=== PATIENT | male | born 1975 | race American Indian/Alaskan Native ===

== ENCOUNTER 2020-07-22 14:56 | Outpatient (CLI) | payer OTHER ==
--- NOTE | 2020-07-22 16:33 | XRay Report ---
Lumbar spine-5 views INDICATION: Low back pain for the past month, previous injury 2 years ago after a fall. COMPARISON: None. IMPRESSION: Mild scoliotic curvature the spine with normal AP alignment. Mild lower lumbar discogen ic DJD. No acute osseous or soft tissue abnormality. Signer Name: Ten Wilhelm MD Signed: 07/22/2020 4:29 PM Workstation Name: [id number]
== END 2020-07-22 14:57 | disposition home or self-care (01) ==
LOC: XRAY 14:56
PROVIDERS: ATTEND Orthopaedic Surgery
DX: M47.816 Spondylosis without myelopathy or radiculopathy, lumbar region (principal); M43.8X7 Other specified deforming dorsopathies, lumbosacral region; M25.552 Pain in left hip
CPT/HCPCS: 72100

== ENCOUNTER 2020-12-02 15:17 | Inpatient (IN) | payer OTHER ==
--- NOTE | 2020-12-02 16:02 | Emergency Department Report ---
Blank Doc - Documentation Documentation: 45-year-old male that presents with headaches and confusing. Stated HX of HTN and is complaint. Was sent by PCP. Exam: neuro exam unremarkable. 1- This initial assessment/diagnostic orders/clinical plan/ treatment(s) is/are subject to change based on pt's health status, clinical progression and re- assessment by fellow clinical providers in the ED. Further treatment and workup at subsequent clinical provers discretion. Patient/guardians urged not to elope from ED as their condition may be serious if not clinically assessed and managed. 2-labs 3-CT head
[2020-12-02 16:42] LABS: Basophils # (Auto) 0.1 K/mm3 (0.0-0.1); Basophils % (Auto) 0.7 % (0.0-1.8); Eosinophils # (Auto) 0.2 K/mm3 (0.0-0.4); Eosinophils % (Auto) 1.8 % (0.0-4.3); Hematocrit 48.6 % (35.5-45.6); Hemoglobin 16.3 gm/dl (11.8-15.2); Mean Corpuscular HGB Conc 34 % (32-34); Mean Corpuscular Volume 92 fl (84-94); Monocytes # (Auto) 0.8 K/mm3 (0.0-0.8); Monocytes % (Auto) 8.4 % (0.0-7.3); Platelet Count 269 K/mm3 (140-440); Red Blood Count 5.29 M/mm3 (3.65-5.03); Red Cell Distribution Width 14.4 % (13.2-15.2)
[2020-12-02 16:53] LABS: Alanine Aminotransferase 16 units/L (7-56); Albumin 4.3 g/dL (3.9-5); BUN/Creatinine Ratio 11; Blood Urea Nitrogen 11 mg/dL (9-20); Calcium 9.9 mg/dL (8.4-10.2); Hemolysis Index 3; INR 1.11 (0.87-1.13)
[2020-12-02 16:54] LABS: Partial Thromboplastin Time 35.5 Sec. (24.2-36.6)
--- NOTE | 2020-12-02 17:03 | Cat Scan Report ---
NONENHANCED CT SCAN OF THE HEAD: INDICATION / CLINICAL INFORMATION: 45 years Male; Altered Mental Status. TECHNIQUE: Routine CT head without contrast. All CT scans at this location are performed using CT dos e reduction for ALARA by means of automated exposure control. COMPARISON: CT scan of the head from 05/22/2012 FINDINGS: BRAIN / INTRACRANIAL CONTENTS: Low-attenuation lesion along the right anterior cerebral artery territ ory; mild mass effect right frontal horn; this appears to be recent infarction; no hemorrhagic change s; No chronic infarct or focal atrophy. Normal brain volume and ventricular/sulcal size for age. No sign ificant white matter abnormality. CRANIOCERVICAL JUNCTION: No significant abnormality. ORBITS: No significant abnormality of visualized orbits. SINUSES / MASTOIDS: No significant abnormality of the visualized paranasal sinuses or mastoid air carina ls. ADDITIONAL FINDINGS: None. IMPRESSION: Right CRITICAL RESULT: Time of Discovery (KILN REMOVER/CDT): 3:55 PM Time of Communication (KILN REMOVER/CDT): 3:58 PM Licensed Practitioner Receiving Report: Charge nurse Read-Back Performed: Yes. frontal lobe lesion; Subacute nonhemorrhagic infarction Signer Name: Galo Wilder MD Signed: 12/02/2020 4:59 PM Workstation Name: [id number]
[2020-12-02] MEDS ORDERED: ACETAMINOPHEN 325 MG TAB PO ONE (18:52)
--- NOTE | 2020-12-02 20:43 | Emergency Department Report ---
HPI - General Chief Complaint: High BP Time Seen by Provider: 12/02/20 16:01 - HPI HPI: This is a 45-year-old -[place] male who presents to the emergency department with complaint of 2 days of confusion. The patient says that he was having difficulty answering questions that he normally would be able to answer such as a list of his medications. The patient's , who is currently on the phone during our initial examination, also says that the patient has been "delirious" in which he is having episodes where he is not making sense and wand ering off. They called 911 last night and the patient was evaluated by EMS but did not go to a hospital for evaluation or treatment. Over this 2 days the patient also complains of a headache behind his eyes. He has had some transient blurry vision. He denies any numbness or paresthesias, facial droop, difficulty moving his extremities or walking. He has a past medical history of hypertension. He had an episode of pancreatitis back in March of last year. The patient is a tobacco smoker but denies any illicit drug use. He is an occasional or social drinker. ED Past Medical Hx - Past Medical History Hx Hypertension: Yes - Surgical History Additional Surgical History: hernia, hemorrhoidectomy - Social History Smoking Status: Never Smoker Substance Use Type: Alcohol - Medications Home Medications: Home Medications Medication Instructions Recorded Confirmed Last Taken Type Lisinopril/Hydrochlorothiazide 1 tab PO QDAY 08/26/13 08/14/15 08/13/15 History [Zestoretic 20-25 mg] traMADoL [Ultram 50 MG tab] 50 mg PO Q6H PRN #20 tablet 08/26/13 08/14/15 08/13/15 Rx Permethrin 5% [Acticin 5% CREAM] 1 applicatio TP ONCE #1 tube 08/14/15 Unknown Rx hydrOXYzine PAMOATE [Vistaril] 25 mg PO Q6HR PRN #20 capsule 08/14/15 Unknown Rx ED Review of Systems ROS: Stated complaint: HYPERTENSION Other details as noted in HPI Comment: All other systems reviewed and negative Constitutional: denies: chills, fever Eyes: vision change (Transient blurry vision). denies: eye pain ENT: denies: ear pain, throat pain Respiratory: denies: cough, shortness of breath Cardiovascular: denies: chest pain, palpitations Gastrointestinal: denies: abdominal pain, vomiting Genitourinary: denies: dysuria, discharge Musculoskeletal: denies: back pain, arthralgia Neurological: headache, confusion. denies: weakness, numbness, paresthesias Physical Exam - Physical Exam Vital Signs: Vital Signs 12/02/20 12/02/20 12/02/20 15:46 15:51 20:28 Temperature 98.6 F 97.6 F Pulse Rate 77 75 Respiratory 18 18 12 Rate Blood Pressure 150/92 154/100 Blood Pressure 152/95 [Left] O2 Sat by Pulse 98 99 Oximetry Physical Exam: GENERAL: The patient is well-developed well-nourished. HENT: Normocephalic. Atraumatic. Patient has moist mucous membranes. EYES: Extraocular motions are intact. Pupils equal reactive to light bilaterally. No nystagmus. NECK: Supple. Trachea is midline. CHEST/LUNGS: Clear to auscultation. There is no respiratory distress noted. HEART/CARDIOVASCULAR: Regular. There is no tachycardia. There is no murmur. ABDOMEN: Abdomen is soft, nontender. Patient has normal bowel sounds. There is no abdominal distention. SKIN: Skin is warm and dry. NEURO: The patient is awake, alert, and oriented. The patient is cooperative. No pronator drift. No dysmetria. No facial asymmetry. Normal speech. Cranial nerves II through XII grossly intact. MUSCULOSKELETAL: There is no tenderness or deformity. There is no limitation range of motion. ED Course Vital Signs 12/02/20 12/02/20 12/02/20 15:46 15:51 20:28 Temperature 98.6 F 97.6 F Pulse Rate 77 75 Respiratory 18 18 12 Rate Blood Pressure 150/92 154/100 Blood Pressure 152/95 [Left] O2 Sat by Pulse 98 99 Oximetry - Consultations Consultation #1: 12/03/20 00:10 Patient was seen by the telemedicine neurologist, Dr. Mosley. He agrees that the patient does not require CT angiography studies. The patient is outside of the window for TPA or thrombectomy. He recommends admission to the hospital for further stroke work-up including MRI, echocardiogram, and inpatient neurology consult. ED Medical Decision Making - Lab Data Result diagrams: 12/02/20 16:11 12/02/20 16:11 Lab Results 12/02/20 12/02/2012/02/21 Range/Units 16:11 16:11 16:11 WBC 10.0 (4.5-11.0) K/mm3 RBC 5.29 H (3.65-5.03) M/mm3 Hgb 16.3 H (11.8-15.2) gm/dl Hct 48.6 H (35.5-45.6) % MCV 92 (84-94) fl MCH 31 (28-32) pg MCHC 34 (32-34) % RDW 14.4 (13.2-15.2) % Plt Count 269 (140-440) K/mm3 Lymph % (Auto) 20.0 (13.4-35.0) % Wake % (Auto) 8.4 H (0.0-7.3) % Eos % (Auto) 1.8 (0.0-4.3) % Baso % (Auto) 0.7 (0.0-1.8) % Lymph # (Auto) 2.0 (1.2-5.4) K/mm3 Wake # (Auto) 0.8 (0.0-0.8) K/mm3 Eos # (Auto) 0.2 (0.0-0.4) K/mm3 Baso # (Auto) 0.1 (0.0-0.1) K/mm3 Seg Neutrophils % 69.1 (40.0-70.0) % Seg Neutrophils # 6.9 (1.8-7.7) K/mm3 PT 14.1 (12.2-14.9) Sec. INR 1.11 (0.87-1.13) APTT 35.5 (24.2-36.6) Sec. Sodium (137-145) mmol/L Potassium (3.6-5.0) mmol/L Chloride (98-107) mmol/L Carbon Dioxide (22-30) mmol/L Anion Gap mmol/L BUN (9-20) mg/dL Creatinine (0.8-1.3) mg/dL Estimated GFR ml/min BUN/Creatinine Ratio % Glucose (75-100) mg/dL Lactic Acid 0.80 (0.7-2.0) mmol/L Calcium (8.4-10.2) mg/dL Total Bilirubin (0.1-1.2) mg/dL AST (5-40) units/L ALT (7-56) units/L Alkaline Phosphatase (35-129) units/L Total Creatine Kinase (55-170) units/L Troponin T (0.00-0.029) ng/mL Total Protein (6.3-8.2) g/dL Albumin (3.9-5) g/dL Albumin/Globulin Ratio % Salicylates (2.8-20.0) mg/dL Acetaminophen (10.0-30.0) ug/mL Plasma/Serum Alcohol (0-0.07) % 12/02/20 12/02/20 12/02/20 Range/Units 16:11 16:11 16:11 WBC (4.5-11.0) K/mm3 RBC (3.65-5.03) M/mm3 Hgb (11.8-15.2) gm/dl Hct (35.5-45.6) % MCV (84-94) fl MCH (28-32) pg MCHC (32-34) % RDW (13.2-15.2) % Plt Count (140-440) K/mm3 Lymph % (Auto) (13.4-35.0) % Wake % (Auto) (0.0-7.3) % Eos % (Auto) (0.0-4.3) % Baso % (Auto) (0.0-1.8) % Lymph # (Auto) (1.2-5.4) K/mm3 Wake # (Auto) (0.0-0.8) K/mm3 Eos # (Auto) (0.0-0.4) K/mm3 Baso # (Auto) (0.0-0.1) K/mm3 Seg Neutrophils % (40.0-70.0) % Seg Neutrophils # (1.8-7.7) K/mm3 PT (12.2-14.9) Sec. INR (0.87-1.13) APTT (24.2-36.6) Sec. Sodium 134 L (137-145) mmol/L Potassium 4.2 (3.6-5.0) mmol/L Chloride 100.6 (98-107) mmol/L Carbon Dioxide 22 (22-30) mmol/L Anion Gap 16 mmol/L BUN 11 (9-20) mg/dL Creatinine 1.0 (0.8-1.3) mg/dL Estimated GFR > 60 ml/min BUN/Creatinine Ratio 11 % Glucose 125 H (75-100) mg/dL Lactic Acid (0.7-2.0) mmol/L Calcium 9.9 (8.4-10.2) mg/dL Total Bilirubin 0.30 (0.1-1.2) mg/dL AST 20 (5-40) units/L ALT 16 (7-56) units/L Alkaline Phosphatase 97 (35-129) units/L Total Creatine Kinase 207 H (55-170) units/L Troponin T < 0.010 (0.00-0.029) ng/mL Total Protein 8.1 (6.3-8.2) g/dL Albumin 4.3 (3.9-5) g/dL Albumin/Globulin Ratio 1.1 % Salicylates < 0.3 L (2.8-20.0) mg/dL Acetaminophen 5.0 L (10.0-30.0) ug/mL Plasma/Serum Alcohol (0-0.07) % // Range/Units 16:11 WBC (4.5-11.0) K/mm3 RBC (3.65-5.03) M/mm3 Hgb (11.8-15.2) gm/dl Hct (35.5-45.6) % MCV (84-94) fl MCH (28-32) pg MCHC (32-34) % RDW (13.2-15.2) % Plt Count (140-440) K/mm3 Lymph % (Auto) (13.4-35.0) % Wake % (Auto) (0.0-7.3) % Eos % (Auto) (0.0-4.3) % Baso % (Auto) (0.0-1.8) % Lymph # (Auto) (1.2-5.4) K/mm3 Wake # (Auto) (0.0-0.8) K/mm3 Eos # (Auto) (0.0-0.4) K/mm3 Baso # (Auto) (0.0-0.1) K/mm3 Seg Neutrophils % (40.0-70.0) % Seg Neutrophils # (1.8-7.7) K/mm3 PT (12.2-14.9) Sec. INR (0.87-1.13) APTT (24.2-36.6) Sec. Sodium (137-145) mmol/L Potassium (3.6-5.0) mmol/L Chloride (98-107) mmol/L Carbon Dioxide (22-30) mmol/L Anion Gap mmol/L BUN (9-20) mg/dL Creatinine (0.8-1.3) mg/dL Estimated GFR ml/min BUN/Creatinine Ratio % Glucose (75-100) mg/dL Lactic Acid (0.7-2.0) mmol/L Calcium (8.4-10.2) mg/dL Total Bilirubin (0.1-1.2) mg/dL AST (5-40) units/L ALT (7-56) units/L Alkaline Phosphatase (35-129) units/L Total Creatine Kinase (55-170) units/L Troponin T (0.00-0.029) ng/mL Total Protein (6.3-8.2) g/dL Albumin (3.9-5) g/dL Albumin/Globulin Ratio % Salicylates (2.8-20.0) mg/dL Acetaminophen (10.0-30.0) ug/mL Plasma/Serum Alcohol < 0.01 (0-0.07) % - Radiology Data Radiology results: report reviewed NONENHANCED CT SCAN OF THE HEAD: INDICATION / CLINICAL INFORMATION: 45 years Male; Altered Mental Status. TECHNIQUE: Routine CT head without contrast. All CT scans at this location are performed using CT dose reduction for ALARA by means of automated exposure control. COMPARISON: CT scan of the head from 05/22/2012 FINDINGS: BRAIN / INTRACRANIAL CONTENTS: Low-attenuation lesion along the right anterior cerebral artery territory; mild mass effect right frontal horn; this appears to be recent infarction; no hemorrhagic changes; No chronic infarct or focal atrophy. Normal brain volume and ventricular/sulcal size for age. No significant white matter abnormality. CRANIOCERVICAL JUNCTION: No significant abnormality. ORBITS: No significant abnormality of visualized orbits. SINUSES / MASTOIDS: No significant abnormality of the visualized paranasal sinuses or mastoid air cells. ADDITIONAL FINDINGS: None. IMPRESSION: Right frontal lobe lesion; Subacute nonhemorrhagic infarction - Medical Decision Making This patient presents to the emergency department with a complaint of a headache, "confusion", intermittent blurry vision. He was found to have a right frontal subacute infarct on CT showing recent CVA. He was seen by telemedicine neurology who got an NIH stroke scale of 2. Patient was given aspirin. Labs have been mostly unremarkable including CBC, metabolic panel, coags, troponin, acetaminophen/salicylates. Vital signs have been reassuring throughout his ED course thus far. The patient will be admitted to the hospital for further evaluation and treatment was accepted for admission by the hospitalist service. Critical Care Time: No Critical care attestation.: If time is entered above; I have spent that time in minutes in the direct care of this critically ill patient, excluding procedure time. ED Disposition Clinical Impression: CVA (cerebral vascular accident) Qualifiers: CVA mechanism: unspecified Qualified Code(s): I63.9 - Cerebral infarction, unspecified Hypertension Qualifiers: Hypertension type: essential hypertension Qualified Code(s): I10 - Essential (primary) hypertension Disposition: 09 OP ADMIT IP TO THIS HOSP Is pt being admited?: No Condition: Stable Time of Disposition: 21:23
--- NOTE | 2020-12-02 21:04 | Consultation ---
History of Present Illness History of present illness: [facility] Tele[facility]urology Consult Services Stat Consult Date of Service: 12/02/2020 20:47:35 Impression: I63.9 - Cerebrovascular accident (CVA), unspecified mechanism (HCC) Comments/Sign-Out: 45 y/o man presents with h/o HTN who presents to to the ED with confusion and blurry vision since Wednesday (11/30) afternoon. Stroke seen on CT. CT HEAD: Reviewed Metrics: [facility] Notification Time: 12/02/2020 20:47:35 Stamp Time: 12/02/2020 20:47:35 Callback Response Time: 12/02/2020 20:48:03 Our recommendations are outlined below. Recommendations: ASA if no contraindication Covid testing Imaging Studies: MRI Head Without Contrast MRA Head Without Contrast Echocardiogram - Transthoracic Echocardiogram Therapies: Physical Therapy, Occupational Therapy, Speech Therapy Assessment When Applicable Disposition: Neurology Follow Up Recommended Sign Out: Discussed with Emergency Department Provider Chief Complaint: confusion and blurry vision History of Present Illness: Patient is a 45 year old Male. 45 y/o man presents with h/o HTN who presents to to the ED with confusion and blurry vision since Wednesday (11/30) afternoon. Patient also notes some slight gait difficulty since Wednesday. STAT teleneurology requested after CT brain showed a subacute right NIDHI ischemic stroke. Case discussed with ED attending at bedside. Examination: BP(152/95), Pulse(75), Blood Glucose(125) 1A: Level of Consciousness - Alert; keenly responsive + 0 1B: Ask Month and Age - Both Questions Right + 0 1C: Blink Eyes & Squeeze Hands - Performs Both Tasks + 0 2: Test Horizontal Extraocular Movements - Normal + 0 3: Test Visual Jeong - No Visual Loss + 0 4: Test Facial Palsy (Use Grimace if Obtunded) - Normal symmetry + 0 5A: Test Left Arm Motor Drift - No Drift for 10 Seconds + 0 5B: Test Right Arm Motor Drift - No Drift for 10 Seconds + 0 6A: Test Left Leg Motor Drift - Drift, but doesn't hit bed + 1 6B: Test Right Leg Motor Drift - No Drift for 5 Seconds + 0 7: Test Limb Ataxia (FNF/Heel-Florez) - No Ataxia + 0 8: Test Sensation - Mild-Moderate Loss: Less Sharp/More Dull + 1 9: Test Language/Aphasia - Normal; No aphasia + 0 10: Test Dysarthria - Normal + 0 11: Test Extinction/Inattention - No abnormality + 0 NIHSS Score: 2 Patient/Family was informed the Neurology Consult would occur via TeleHealth consult by way of interactive audio and video telecommunications and consented to receiving care in this manner. Due to the immediate potential for life-threatening deterioration due to underlying acute neurologic illness, I spent 15 minutes providing critical care. This time includes time for face to face visit via telemedicine, review of medical records, imaging studies and discussion of findings with providers, the patient and/or family. Dr Fercho Mosley [facility] Case [id number] Medications and Allergies Allergies Allergy/AdvReac Type Severity Reaction Status Date / Time No Known Allergies Allergy Verified 12/02/20 15:44 Home Medications Medication Instructions Recorded Confirmed Last Taken Type Lisinopril/Hydrochlorothiazide 1 tab PO QDAY 08/26/13 08/14/15 08/13/15 History [Zestoretic 20-25 mg] traMADoL [Ultram 50 MG tab] 50 mg PO Q6H PRN #20 tablet 08/26/13 08/14/15 08/13/15 Rx Permethrin 5% [Acticin 5% CREAM] 1 applicatio TP ONCE #1 tube 08/14/15 Unknown Rx hydrOXYzine PAMOATE [Vistaril] 25 mg PO Q6HR PRN #20 capsule 08/14/15 Unknown Rx Physical Examination - Vital Signs Vital Signs: Vital Signs Temp Pulse Resp BP Pulse Ox 98.6 F 77 18 150/92 98 12/02/20 15:46 12/02/20 15:46 12/02/20 15:46 12/02/20 15:46 12/02/20 15:46 Results - Laboratory Findings CBC and BMP: 12/02/20 16:11 12/02/20 16:11 Abnormal Lab Findings: Abnormal Labs 12/02/20 12/02/20 12/02/20 16:11 16:11 16:11 RBC 5.29 H Hgb 16.3 H Hct 48.6 H [place] % (Auto) 8.4 H Sodium 134 L Glucose 125 H Total Creatine Kinase 207 H Salicylates < 0.3 L Acetaminophen 12/02/20 16:11 RBC Hgb Hct [place] % (Auto) Sodium Glucose Total Creatine Kinase Salicylates Acetaminophen 5.0 L
[2020-12-02] MEDS ORDERED: ASPIRIN 81 MG TAB CHEW PO ONE (21:13)
[2020-12-02] MEDS ORDERED: ACETAMINOPHEN 325 MG TAB PO PRN (21:36)
[2020-12-02] MEDS ORDERED: METOCLOPRAMIDE 10 MG/2 ML INJ IV PRN (21:36)
[2020-12-02] MEDS ORDERED: ONDANSETRON 4 MG/2 ML INJ IV PRN (21:36)
[2020-12-02] MEDS ORDERED: ALUM-MAG HYDROXIDE-SIMETHICONE 200-200-20MG/5ML ORAL LIQD 30 ML PO PRN (21:36)
[2020-12-02] MEDS ORDERED: MAGNESIUM HYDROXIDE (MOM) ORAL LIQD UDC PO PRN (21:36)
--- NOTE | 2020-12-02 21:46 | History and Physical Report ---
History of Present Illness Date of examination: 12/02/20 Date of admission: 12/02/20 Chief complaint: Confusion Delirium CVA History of present illness: This is a 45-year-old -[place] male who presents to the emergency department with complaint of 2 days of confusion. The patient says that he was having difficulty answering questions that he normally would be able to answer such as a list of his medications. The patient's , who is currently on the phone during our initial examination, also says that the patient has been "delirious" in which he is having episodes where he is not making sense and wandering off. They called 911 last night and the patient was evaluated by EMS but did not go to a hospital for evaluation or treatment. Over this 2 days the patient also complains of a headache behind his eyes. He has had some transient blurry vision. He denies any numbness or paresthesias, facial droop, difficulty moving his extremities or walking. He has a past medical history of hypertension. He had an episode of pancreatitis back in March of last year. The patient is a tobacco smoker but denies any illicit drug use. He is an occasion al or social drinker. ED work up shows-WBC 10.0, hemoglobin 16.3, platelets 269, sodium 134, potassium 4.2, creatinine 1.0, serum glucose 207. CT of the head was done it showed a subacute nonhemorrhagic infarction Teleneuro was consulted Patient seen in the ED at bedside. Patient appears more alert and oriented. He reported a history of high blood pressure, tobacco use, but denies alcohol and i llicit drug use. He reported a history of mother with high blood pressure and multiple myeloma. I reviewed the lab and vital signs. I reviewed neuro consult recommendation. We will follow up with plan of care. Physical therapy, occupational therapy, and speech pathologist consulted MRI head without contrast and MRA head without contrast ordered Echocardiogram ordered. Past History Past Medical History: hypertension Past Surgical History: hernia repair Social history: smoking Family history: CAD, diabetes, hypertension Medications and Allergies Allergies Allergy/AdvReac Type Severity Reaction Status Date / Time No Known Allergies Allergy Verified 12/02/20 15:44 Home Medications Medication Instructions Recorded Confirmed Last Taken Type Lisinopril/Hydrochlorothiazide 1 tab PO QDAY 08/26/13 08/14/15 08/13/15 History [Zestoretic 20-25 mg] traMADoL [Ultram 50 MG tab] 50 mg PO Q6H PRN #20 tablet 08/26/13 08/14/15 08/13/15 Rx Permethrin 5% [Acticin 5% CREAM] 1 applicatio TP ONCE #1 tube 08/14/15 Unknown Rx hydrOXYzine PAMOATE [Vistaril] 25 mg PO Q6HR PRN #20 capsule 08/14/15 Unknown Rx Active Meds: Active Medications Acetaminophen (Acetaminophen 325 Mg Tab) 650 mg PO Q4H PRN PRN Reason: Pain MILD(1-3)/Fever >100.5/MAGAÑA Al Hydrox/Mg Hydrox/Simethicone (Alum-Mag Hydroxide-Simethicone [id number]/5ml Oral Liqd 30 Ml) 30 ml PO Q4H PRN PRN Reason: Indigestion Atorvastatin Calcium (Atorvastatin 40 Mg Tab) 40 mg PO QHS JOHN Labetalol HCl (Labetalol 20 Mg/4 Ml Inj) 10 mg IV Q5MIN PRN PRN Reason: to maintain SBP < 180 Magnesium Hydroxide (Magnesium Hydroxide (Mom) Oral Liqd Udc) 30 ml PO Q4H PRN PRN Reason: Constipation Metoclopramide HCl (Metoclopramide 10 Mg/2 Ml Inj) 10 mg IV Q6H PRN PRN Reason: Nausea And Vomiting Ondansetron HCl (Ondansetron 4 Mg/2 Ml Inj) 4 mg IV Q8H PRN PRN Reason: Nausea And Vomiting Sodium Chloride (Sodium Chloride 0.9% 10 Ml Flush Syringe) 10 ml INJ PRN PRN PRN Reason: LINE FLUSH Sodium Chloride (Sodium Chloride 0.9% 10 Ml Flush Syringe) 10 ml IV BID JOHN Sodium Chloride (Sodium Chloride 0.9% 10 Ml Flush Syringe) 10 ml IV PRN PRN PRN Reason: LINE FLUSH Review of Systems Constitutional: no weight loss Ears, nose, mouth and throat: no epistaxis Cardiovascular: high blood pressure, no chest pain Respiratory: no congestion, no wheezing Gastrointestinal: no abdominal pain, no nausea Genitourinary Male: no dysuria Rectal: no itching Integumentary: no rash, no pruritis Neurological: confusion, memory loss Psychiatric: no anxiety Hematologic/Lymphatic: no easy bruising, no easy bleeding Exam - Constitutional Vitals: Temp Pulse Resp BP Pulse Ox 97.6 F 89 15 147/89 99 12/02/20 15:51 12/02/20 21:15 12/02/20 21:15 12/02/20 21:15 12/02/20 21:15 General appearance: Present: no acute distress - EENT Eyes: Absent: conjunctival injection ENT: hearing intact, clear oral mucosa - Neck Neck: Present: supple, normal ROM - Respiratory Respiratory effort: normal Respiratory: bilateral: CTA - Cardiovascular Heart Sounds: Present: S1 & S2. Absent: rub, click - Extremities Extremities: pulses symmetrical, No edema - Abdominal General gastrointestinal: Present: soft Male genitourinary: Present: normal - Integumentary Integumentary: Present: clear, warm, dry - Musculoskeletal Musculoskeletal: strength equal bilaterally, other (left leg weakness mild) - Psychiatric Psychiatric: appropriate mood/affect, cooperative HEART Score - HEART Score Troponin: Troponin T < 0.010 ng/mL (0.00-0.029) 12/02/20 16:11 Results - Labs CBC & Chem 7: 12/03/20 04:45 12/03/20 04:45 Labs: Abnormal lab results 12/02/20 12/02/20 12/02/20 Range/Units 16:11 16:11 16:11 RBC 5.29 H (3.65-5.03) M/mm3 Hgb 16.3 H (11.8-15.2) gm/dl Hct 48.6 H (35.5-45.6) % [place] % (Auto) 8.4 H (0.0-7.3) % Sodium 134 L (137-145) mmol/L Glucose 125 H (75-100) mg/dL Total Creatine Kinase 207 H (55-170) units/L Salicylates < 0.3 L (2.8-20.0) mg/dL Acetaminophen (10.0-30.0) ug/mL 12/02/20 Range/Units 16:11 RBC (3.65-5.03) M/mm3 Hgb (11.8-15.2) gm/dl Hct (35.5-45.6) % [place] % (Auto) (0.0-7.3) % Sodium (137-145) mmol/L Glucose (75-100) mg/dL Total Creatine Kinase (55-170) units/L Salicylates (2.8-20.0) mg/dL Acetaminophen 5.0 L (10.0-30.0) ug/mL Assessment and Plan - Patient Problems (1) CVA (cerebral vascular accident) Current Visit: Yes Status: Acute Qualifiers: CVA mechanism: unspecified Qualified Code(s): I63.9 - Cerebral infarction, unspecified Plan to address problem: CT of the head showed subacute infarction PT OT and speech consults Telemetry neuro consulted Follow-up with MRI and MRA head and brain Daily aspirin (2) Hypertension Current Visit: Yes Status: Acute Qualifiers: Hypertension type: essential hypertension Qualified Code(s): I10 - Essent ial (primary) hypertension Plan to address problem: Monitor vital signs Resume home medication Adjust blood pressure if needed. As needed hydralazine. (3) Tobacco abuse Current Visit: Yes Status: Acute Plan to address problem: Patient reported tobacco use 1 pack daily Discussed tobacco use cessation Cardiovascular and neoplasm syndrome of tobacco use explained to patient (4) DVT prophylaxis Current Visit: Yes Status: Acute Plan to address problem: Subcutaneous Lovenox
[2020-12-02] MEDS ORDERED: traMADol 50 MG TAB PO PRN (22:03)
[2020-12-03 05:31] LABS: Basophils % (Auto) 0.6 % (0.0-1.8); Eosinophils # (Auto) 0.2 K/mm3 (0.0-0.4); Hematocrit 46.2 % (35.5-45.6); Hemoglobin 15.4 gm/dl (11.8-15.2); Lymphocytes # (Auto) 2.4 K/mm3 (1.2-5.4); Lymphocytes % (Auto) 33.6 % (13.4-35.0); Mean Corpuscular HGB Conc 33 % (32-34); Mean Corpuscular Volume 92 fl (84-94); Monocytes # (Auto) 0.8 K/mm3 (0.0-0.8); Monocytes % (Auto) 10.9 % (0.0-7.3); Platelet Count 250 K/mm3 (140-440); Red Blood Count 5.04 M/mm3 (3.65-5.03); Red Cell Distribution Width 14.3 % (13.2-15.2)
[2020-12-03 05:50] LABS: Alanine Aminotransferase 15 units/L (7-56); BUN/Creatinine Ratio 14; Blood Urea Nitrogen 14 mg/dL (9-20); Calcium 9.2 mg/dL (8.4-10.2); HDL Cholesterol 39 mg/dL (40-59); Hemolysis Index 6; LDL Cholesterol,Direct 105 mg/dL (50-130)
[2020-12-03 05:58] LABS: Bilirubin,Direct < 0.2 mg/dL (0-0.2)
[2020-12-03] MEDS ORDERED: hydrALAZINE 20 MG/1 ML INJ IV PRN (07:25)
[2020-12-03] MEDS ORDERED: hydrOXYzine PAMOATE 25 MG CAP PO PRN (07:40)
[2020-12-03] MEDS ORDERED: LISINOPRIL 20 MG TAB PO SCH (10:00)
[2020-12-03] MEDS: ASPIRIN EC 81 MG TAB PO SCH (11:47)
[2020-12-03] MEDS: hydroCHLOROthiazide 25 MG TAB PO SCH (11:47)
[2020-12-03] MEDS: cloNIDine 0.2 MG TAB PO SCH ×2 (11:47→21:43)
[2020-12-03] MEDS: ENOXAPARIN 40 MG/0.4 ML INJ SUB-Q SCH (11:48)
[2020-12-03 12:19] LABS: Bilirubin,Urine NEG (Negative); Blood,Urine NEG (Negative); Color,Urine Yellow (Yellow); Mucus,Urine 3+ /HPF; Protein,Urine <15 mg/dL mg/dL (Negative); Urobilinogen,Urine < 2.0 mg/dL (<2.0)
[2020-12-03 12:24] LABS: Benzodiazepines Screen,Urine Negative; Cannabinoid Screen,Urine Negative; Methadone Screen,Urine Negative; Opiate Screen,Urine Negative
[2020-12-03 12:58] LABS: Amphetamine Screen,Urine PRESUMPTIVE POSITIVE; Cocaine Screen,Urine PRESUMPTIVE POSITIVE
--- NOTE | 2020-12-03 15:50 | Magnetic Resonance Report ---
NONENHANCED MR SCAN OF THE BRAIN: INDICATION / CLINICAL INFORMATION: r/o cva. TECHNIQUE: Multiplanar, multisequence MR images of the brain obtained. COMPARISON: CT scan of the head from 12/02/2020 FINDINGS: BRAIN / INTRACRANIAL CONTENTS: Subacute infarction in the right anterior cerebral artery territory, m ore than 12 hours old increased T2 signal intensity) less than 3 days old (low ADC); no morrhagic jennifer nges Scattered white matter lesions ([place] 0) due to chronic small vessel disease Brainstem and cerebral hemispheres are normal Medial temporal lobes and insular cortex are normal CRANIOCERVICAL JUNCTION: Peg Shaped erebellar tonsils extending below the foramen magnum; transverse dimension of the cervicomedullary junction narrowed at the level of foramen magnum; retrotonsillar CS F containing space preserved; type I Chiari malformation VASCULAR FLOW-VOIDS: No significant abnormality. ORBITS: No significant abnormality of visualized orbits. SINUSES / MASTOIDS: No significant abnormality of visualized sinuses and mastoid air cells. ADDITIONAL FINDINGS: None. IMPRESSION: 1. Nonhemorrhagic subacute branch occlusion infarction in the right anterior cerebral artery territo ry 2. Chiari type I malformation Signer Name: Galo Wilder MD Signed: 12/03/2020 3:45 PM Workstation Name: [id number] [facility] [employer]
--- NOTE | 2020-12-03 16:00 | Magnetic Resonance Report ---
MRA HEAD WITHOUT CONTRAST HISTORY: Stroke COMPARISON: None. TECHNIQUE: Routine MRA of the head is performed. 3-D/MIP reformats postprocessed. CONTRAST: None. FINDINGS: Intracranial vertebral arteries: No significant abnormality. Basilar artery: No significant abnormality. Posterior cerebral arteries: No significant abnormality. Right posterior communicating artery contrib utes to right posterior cerebral artery Intracranial internal carotid arteries: No significant abnormality. Anterior cerebral arteries: A1, A2 & A3 segments normal bilaterally; right callosomarginal artery oc cluded Middle cerebral arteries: No significant abnormality. Variants and anomalies:None Additional findings: None. IMPRESSION: [place] of [place] and both middle cerebral artery trifurcations normal; A1, A2 & A3 segments normal bi laterally Right callosomarginal artery occluded Signer Name: Galo Wilder MD Signed: 12/03/2020 3:55 PM Workstation Name: [id number]
--- NOTE | 2020-12-03 20:25 | Progress Note ---
Subjective Date of service: 12/03/20 Principal diagnosis: CVA Interval history: The Video Component was not able to established . Per the Nursing Staff the patient reports clinical improvement , there is no focal weakness . Reviewed MRI Brain and MRA Brain - Seems a focal infarct in the Anterior Circulations - MRA ? occlusion Given the age of the patient , patient needs a embolic workup including / DAYDAY / Holter out patient to rule out Atrial Fibrillation . Currently continue with Statins and Antiplatelet Agents . Call Back with Questions Dr. Cole Objective - Vital Sign Vital Signs - 12hr 12/03/20 12/03/20 12/03/20 08:23 11:38 16:33 Temperature 97.5 F L 98.1 F Pulse Rate 62 88 85 Respiratory 18 18 Rate Blood Pressure 180/102 165/93 O2 Sat by Pulse 91 96 Oximetry 12/03/20 16:52 Temperature 98.0 F Pulse Rate 69 Respiratory 18 Rate Blood Pressure 104/77 O2 Sat by Pulse 95 Oximetry - Laboratory Findings CBC and BMP: 12/03/20 04:45 12/03/20 04:45 Abnormal Lab Findings: Abnormal Labs 12/02/20 12/02/20 12/02/20 16:11 16:11 16:11 RBC 5.29 H Hgb 16.3 H Hct 48.6 H [place] % (Auto) 8.4 H Sodium 134 L Glucose 125 H Total Creatine Kinase 207 H HDL Cholesterol Salicylates < 0.3 L Acetaminophen 12/02/20 12/03/20 12/03/20 16:11 04:45 04:45 RBC 5.04 H Hgb 15.4 H Hct 46.2 H [place] % (Auto) 10.9 H Sodium 136 L Glucose Total Creatine Kinase HDL Cholesterol 39 L Salicylates Acetaminophen 5.0 L
[2020-12-03] MEDS: traZODone 50 MG TAB PO PRN (21:48)
--- NOTE | 2020-12-04 08:47 | Progress Note ---
Assessment and Plan Assessment and plan: This is a 45-year-old -[place] male who presents to the emergency department with complaint of 2 days of confusion. The patient says that he was having difficulty answering questions that he normally would be able to answer such as a list of his medications. The patient's urine acute infection or hematuria who is currently on the phone during our initial examination, also says that the patient has been "delirious" in which he is having episodes where he is not making sense and wandering off. They called 911 last night and the patient was evaluated by EMS but did not go to a hospital for evaluation or treatment. Over this 2 days the patient also complains of a headache behind his eyes. He has had some transient blurry vision. He denies any numbness or paresthesias, facial droop, difficulty moving his extremities or walking. He has a past medical history of hypertension. He had an episode of pancreatitis back in March of last year. The patient is a tobacco smoker but denies any illicit drug use. He is an occasional or social drinker. ED work up shows-WBC 10.0, hemoglobin 16.3, platelets 269, sodium 134, potassium 4.2, creatinine 1.0, serum glucose 207. CT of the head was done it showed a subacute nonhemorrhagic infarction Teleneuro was consulted Patient seen in the ED at bedside. Patient appears more alert and oriented. He reported a history of high blood pressure, tobacco use, but denies alcohol and illicit drug use. He reported a history of mother with high blood pressure and multiple myeloma. I reviewed the lab and vital signs. I reviewed neuro consult recommendation. We will follow up with plan of care. Physical therapy, occupational therapy, and speech pathologist consulted MRI head without contrast and MRA head without contrast ordered Echocardiogram ordered. Acute CVA likely on the lower arterial circulation Substance use disorder positive for amphetamines and cocaine Acute encephalopathy metabolic likely secondary to substance abuse and CVA Hypertension with urgency Tobacco use disorder Plan Continue supportive care aspirin and statin Carotid ultrasound Await neurology input Echocardiogram has been ordered pending. PT OT and speech therapy Extensive counseling provided to the patient for substance abuse use he verbalized that he used cocaine 2 months ago at the same time was also hospitalized at another hospital and at that time was started on clonidine due to persistent hypertensive disorder. History Interval history: Patient seen and examined no acute distress at this time resting comfortably. Hospitalist Physical - Physical exam Narrative exam: VITAL SIGNS: Reviewed. GENERAL: The patient appears normally developed, Vital signs as documented. HEAD: No signs of head trauma. EYES: Pupils are equal. Extraocular motions intact. EARS: Hearing grossly intact. MOUTH: Oropharynx is normal. NECK: No adenopathy, no JVD. CHEST: Chest with clear breath sounds bilaterally. No wheezes, rales, or rho nchi. CARDIAC: Regular rate and rhythm. S1 and S2, without murmurs, gallops, or rubs. VASCULAR: No Edema. Peripheral pulses normal and equal in all extremities. ABDOMEN: Soft, non tender and non distended. No rebound or guarding, and no masses palpated. Bowel Sounds normal. MUSCULOSKELETAL: Good range of motion of all major joints. Extremities without clubbing, cyanosis or edema. NEUROLOGIC EXAM: Alert and oriented x 3 No focal sensory or strength deficits. Speech normal. Follows commands. PSYCHIATRIC: Mood normal. SKIN: detail exam as documented in skin assessment - Constitutional Vitals: Temp Pulse Resp BP Pulse Ox 98.2 F 75 18 109/69 98 12/04/20 07:25 12/04/20 07:25 12/04/20 07:25 12/04/20 07:25 12/04/20 07:25 General appearance: Present: no acute distress HEART Score - HEART Score Troponin: Troponin T < 0.010 ng/mL (0.00-0.029) 12/02/20 16:11 Results - Labs CBC & Chem 7: 12/03/20 04:45 12/03/20 04:45 Labs: Laboratory Last Values WBC 7.2 K/mm3 (4.5-11.0) 12/03/20 04:45 RBC 5.04 M/mm3 (3.65-5.03) H 12/03/20 04:45 Hgb 15.4 gm/dl (11.8-15.2) H 12/03/20 04:45 Hct 46.2 % (35.5-45.6) H 12/03/20 04:45 MCV 92 fl (84-94) 12/03/20 04:45 MCH 31 pg (28-32) 12/03/20 04:45 MCHC 33 % (32-34) 12/03/20 04:45 RDW 14.3 % (13.2-15.2) 12/03/20 04:45 Plt Count 250 K/mm3 (140-440) 12/03/20 04:45 Lymph % (Auto) 33.6 % (13.4-35.0) 12/03/20 04:45 [place] % (Auto) 10.9 % (0.0-7.3) H 12/03/20 04:45 Eos % (Auto) 3.0 % (0.0-4.3) 12/03/20 04:45 Baso % (Auto) 0.6 % (0.0-1.8) 12/03/20 04:45 Lymph # (Auto) 2.4 K/mm3 (1.2-5.4) 12/03/20 04:45 [place] # (Auto) 0.8 K/mm3 (0.0-0.8) 12/03/20 04:45 Eos # (Auto) 0.2 K/mm3 (0.0-0.4) 12/03/20 04:45 Baso # (Auto) 0.0 K/mm3 (0.0-0.1) 12/03/20 04:45 Seg Neutrophils % 51.9 % (40.0-70.0) 12/03/20 04:45 Seg Neutrophils # 3.7 K/mm3 (1.8-7.7) 12/03/20 04:45 PT 14.1 Sec. (12.2-14.9) 12/02/20 16:11 INR 1.11 (0.87-1.13) 12/02/20 16:11 APTT 35.5 Sec. (24.2-36.6) 12/02/20 16:11 Sodium 136 mmol/L (137-145) L 12/03/20 04:45 Potassium 3.8 mmol/L (3.6-5.0) 12/03/20 04:45 Chloride 101.8 mmol/L (98-107) 12/03/20 04:45 Carbon Dioxide 24 mmol/L (22-30) 12/03/20 04:45 Anion Gap 14 mmol/L 12/03/20 04:45 BUN 14 mg/dL (9-20) 12/03/20 04:45 Creatinine 1.0 mg/dL (0.8-1.3) 12/03/20 04:45 Estimated GFR > 60 ml/min 12/03/20 04:45 BUN/Creatinine Ratio 14 % 12/03/20 04:45 Glucose 95 mg/dL (75-100) 12/03/20 04:45 POC Glucose 96 mg/dL (70-105) 12/04/20 07:24 Hemoglobin A1c 6.0 % (4-6) 12/03/20 04:45 Lactic Acid 0.80 mmol/L (0.7-2.0) 12/02/20 16:11 Calcium 9.2 mg/dL (8.4-10.2) 12/03/20 04:45 Total Bilirubin 0.30 mg/dL (0.1-1.2) 12/03/20 04:45 Direct Bilirubin < 0.2 mg/dL (0-0.2) 12/03/20 04:45 Indirect Bilirubin 0.1 mg/dL 12/03/20 04:45 AST 19 units/L (5-40) 12/03/20 04:45 ALT 15 units/L (7-56) 12/03/20 04:45 Alkaline Phosphatase 82 units/L (35-129) 12/03/20 04:45 Total Creatine Kinase 207 units/L (55-170) H 12/02/20 16:11 Troponin T < 0.010 ng/mL (0.00-0.029) 12/02/20 16:11 Total Protein 7.7 g/dL (6.3-8.2) 12/03/20 04:45 Albumin 4.0 g/dL (3.9-5) 12/03/20 04:45 Albumin/Globulin Ratio 1.1 % 12/03/20 04:45 Triglycerides 90 mg/dL (2-149) 12/03/20 04:45 Cholesterol 156 mg/dL (50-199) 12/03/20 04:45 LDL Cholesterol Direct 105 mg/dL (50-130) 12/03/20 04:45 HDL Cholesterol 39 mg/dL (40-59) L 12/03/20 04:45 Cholesterol/HDL Ratio 4.00 % 12/03/20 04:45 Urine Color Yellow (Yellow) 12/03/20 12:04 Urine Turbidity Clear (Clear) 12/03/20 12:04 Urine pH 5.0 (5.0-7.0) 12/03/20 12:04 Ur Specific [place] 1.015 (1.003-1.030) 12/03/20 12:04 Urine Protein <15 mg/dl mg/dL (Negative) 12/03/20 12:04 Urine Glucose (UA) Neg mg/dL (Negative) 12/03/20 12:04 Urine Ketones Neg mg/dL (Negative) 12/03/20 12:04 Urine Blood Neg (Negative) 12/03/20 12:04 Urine Nitrite Neg (Negative) 12/03/20 12:04 Urine Bilirubin Neg (Negative) 12/03/20 12:04 Urine Urobilinogen < 2.0 mg/dL (<2.0) 12/03/20 12:04 Ur Leukocyte Esterase Neg (Negative) 12/03/20 12:04 Urine WBC (Auto) 2.0 /HPF (0.0-6.0) 12/03/20 12:04 Urine RBC (Auto) 1.0 /HPF (0.0-6.0) 12/03/20 12:04 Urine Mucus 3+ /HPF 12/03/20 12:04 Salicylates < 0.3 mg/dL (2.8-20.0) L 12/02/20 16:11 Urine Opiates Screen Negative 12/03/20 12:04 Urine Methadone Screen Negative 12/03/20 12:04 Acetaminophen 5.0 ug/mL (10.0-30.0) L 12/02/20 16:11 Ur Barbiturates Screen Negative 12/03/20 12:04 Ur Phencyclidine Scrn Negative 12/03/20 12:04 Ur Amphetamines Screen Presumptive positive 12/03/20 12:04 U Benzodiazepines Scrn Negative 12/03/20 12:04 Urine Cocaine Screen Presumptive positive 12/03/20 12:04 U Marijuana (THC) Screen Negative 12/03/20 12:04 Drugs of Abuse Note Disclamer 12/03/20 12:04 Plasma/Serum Alcohol < 0.01 % (0-0.07) 12/02/20 16:11 Asher/IV: Voiding Method Urinal Active Medications - Current Medications Current Medications: Generic Name Dose Route Start Last Admin Trade Name Freq PRN Reason Stop Dose Admin Acetaminophen 650 mg 12/02/20 21:36 Acetaminophen 325 Mg Tab PO Q4H PRN Pain MILD(1-3)/Fever >100.5/MAGAÑA Al Hydrox/Mg Hydrox/Simethicone 30 ml 12/02/20 21:36 Alum-Mag Hydroxide-Simethicone [phone]/5ml Oral Liqd 30 Ml PO Q4H PRN Indigestion Aspirin 81 mg 12/03/20 10:00 12/03/20 11:47 Aspirin Ec 81 Mg Tab PO 81 mg DAILY JOHN Administration Atorvastatin Calcium 40 mg 12/02/20 22:00 12/03/20 21:48 Atorvastatin 40 Mg Tab PO Not Given QHS [facility] Clonidine HCl 0.2 mg 12/03/20 10:00 12/03/20 21:43 Clonidine 0.2 Mg Tab PO 0.2 mg Q12HR [facility] Administration Enoxaparin Sodium 40 mg 12/03/20 10:00 12/03/20 11:48 Enoxaparin 40 Mg/0.4 Ml Inj SUB-Q 40 mg DAILY [facility] Administration Protocol Hydralazine HCl 5 mg 12/03/20 07:25 Hydralazine 20 Mg/1 Ml Inj IV Q4HR PRN SBP >/=160; DBP >/=100 Hydrochlorothiazide 25 mg 12/03/20 10:00 12/03/20 11:47 Hydrochlorothiazide 25 Mg Tab PO 25 mg DAILY [facility] Administration Hydroxyzine Pamoate 25 mg 12/03/20 07:40 Hydroxyzine Pamoate 25 Mg Cap PO Q6HR PRN Itching Labetalol HCl 10 mg 12/02/20 21:36 Labetalol 20 Mg/4 Ml Inj IV Q5MIN PRN to maintain SBP < 180 Lisinopril 20 mg 12/03/20 10:00 12/03/20 11:48 Lisinopril 20 Mg Tab PO 20 mg DAILY [facility] Administration Magnesium Hydroxide 30 ml 12/02/20 21:36 Magnesium Hydroxide (Mom) Oral Liqd Udc PO Q4H PRN Constipation Metoclopramide HCl 10 mg 12/02/20 21:36 Metoclopramide 10 Mg/2 Ml Inj IV Q6H PRN Nausea And Vomiting Ondansetron HCl 4 mg 12/02/20 21:36 Ondansetron 4 Mg/2 Ml Inj IV Q8H PRN Nausea And Vomiting Sodium Chloride 10 ml 12/02/20 21:36 Sodium Chloride 0.9% 10 Ml Flush Syringe IV PRN PRN LINE FLUSH Sodium Chloride 10 ml 12/02/20 22:00 12/03/20 21:44 Sodium Chloride 0.9% 10 Ml Flush Syringe IV 10 ml BID JOHN Administration Tramadol HCl 50 mg 12/02/20 22:03 Tramadol 50 Mg Tab PO ONCE PRN Moder Pain unrelieved by [place] Trazodone HCl 50 mg 12/02/20 22:03 12/03/20 21:48 Trazodone 50 Mg Tab PO 50 mg QHS PRN Administration Insomnia
--- NOTE | 2020-12-04 10:21 | Consultation ---
History of Present Illness Consult date: 12/04/20 Consult reason: other (CVA, r/o cardiac embolic source) History of present illness: Patient is a 45-year old M who was brought in with alteration of mental status, found with acute CVA. Patient has no residual deficits. A cardiac consultation was requested for rule out cardioembolic source. Patient has a prior history of hypertension, and polysubstance abuse. There is no prior cardiac history. On presentation, his ECG was sinus rhythm, RBBB with no ischemic changes. No arrhythmias seen on telemetry thus far. Further evaluation with an echo cardiogram reports normal left ventricular systolic function, ejection fraction 55-60%. Bubble study is negative. Past History Past Medical History: hypertension Past Surgical History: hernia repair Social history: smoking, other (substance abuse) Family history: CAD, diabetes, hypertension Medications and Allergies Allergies Allergy/AdvReac Type Severity Reaction Status Date / Time No Known Allergies Allergy Verified 12/02/20 15:44 Home Medications Medication Instructions Recorded Confirmed Last Taken Type Lisinopril/Hydrochlorothiazide 1 tab PO QDAY 08/26/13 12/03/20 08/13/15 History [Zestoretic 20-25 mg] traMADoL [Ultram 50 MG tab] 50 mg PO Q6H PRN #20 tablet 08/26/13 12/03/20 08/13/15 Rx Permethrin 5% [Acticin 5% CREAM] 1 applicatio TP ONCE #1 tube 08/14/15 12/03/20 Unknown Rx hydrOXYzine PAMOATE [Vistaril] 25 mg PO Q6HR PRN #20 capsule 08/14/15 12/03/20 Unknown Rx Active Meds: Active Medications Acetaminophen (Acetaminophen 325 Mg Tab) 650 mg PO Q4H PRN PRN Reason: Pain MILD(1-3)/Fever >100.5/MAGAÑA Al Hydrox/Mg Hydrox/Simethicone (Alum-Mag Hydroxide-Simethicone [phone]/5ml Oral Liqd 30 Ml) 30 ml PO Q4H PRN PRN Reason: Indigestion Aspirin (Aspirin Ec 81 Mg Tab) 81 mg PO DAILY [facility] Last Admin: 12/03/20 11:47 Dose: 81 mg Documented by: Atorvastatin Calcium (Atorvastatin 40 Mg Tab) 40 mg PO QHS [facility] Last Admin: 12/03/20 21:48 Dose: Not Given Documented by: Clonidine HCl (Clonidine 0.2 Mg Tab) 0.1 mg PO DAILY PRN PRN Reason: Hypertension Enoxaparin Sodium (Enoxaparin 40 Mg/0.4 Ml Inj) 40 mg SUB-Q DAILY [facility]; Protocol Last Admin: 12/03/20 11:48 Dose: 40 mg Documented by: Hydralazine HCl (Hydralazine 20 Mg/1 Ml Inj) 5 mg IV Q4HR PRN PRN Reason: SBP >/=160; DBP >/=100 Hydrochlorothiazide (Hydrochlorothiazide 25 Mg Tab) 25 mg PO DAILY [facility] Last Admin: 12/03/20 11:47 Dose: 25 mg Documented by: Hydroxyzine Pamoate (Hydroxyzine Pamoate 25 Mg Cap) 25 mg PO Q6HR PRN PRN Reason: Itching Labetalol HCl (Labetalol 20 Mg/4 Ml Inj) 10 mg IV Q5MIN PRN PRN Reason: to maintain SBP < 180 Magnesium Hydroxide (Magnesium Hydroxide (Mom) Oral Liqd Udc) 30 ml PO Q4H PRN PRN Reason: Constipation Metoclopramide HCl (Metoclopramide 10 Mg/2 Ml Inj) 10 mg IV Q6H PRN PRN Reason: Nausea And Vomiting Ondansetron HCl (Ondansetron 4 Mg/2 Ml Inj) 4 mg IV Q8H PRN PRN Reason: Nausea And Vomiting Sodium Chloride (Sodium Chloride 0.9% 10 Ml Flush Syringe) 10 ml IV PRN PRN PRN Reason: LINE FLUSH Sodium Chloride (Sodium Chloride 0.9% 10 Ml Flush Syringe) 10 ml IV BID [facility] Last Admin: 12/03/20 21:44 Dose: 10 ml Documented by: Tramadol HCl (Tramadol 50 Mg Tab) 50 mg PO ONCE PRN PRN Reason: Moder Pain unrelieved by [place] Trazodone HCl (Trazodone 50 Mg Tab) 50 mg PO QHS PRN PRN Reason: Insomnia Last Admin: 12/03/20 21:48 Dose: 50 mg Documented by: Valsartan (Valsartan 160mg Tab) 160 mg PO BID [facility] Review of Systems Cardiovascular: no chest pain, no palpitations, no rapid/irregular heart beat, no edema, no syncope, no lightheadedness, no shortness of breath Physical Examination Vital Signs Temp Pulse Resp BP Pulse Ox 98.6 F 77 18 150/92 98 12/02/20 15:46 12/02/20 15:46 12/02/20 15:46 12/02/20 15:46 12/02/20 15:46 General appearance: no acute distress HEENT: Positive: PERRL Neck: Positive: trachea midline Cardiac: Positive: Reg Rate and Rhythm Lungs: Positive: Normal Breath Sounds Neuro: Positive: Grossly Intact Extremities: Absent: edema Results 12/03/20 04:45 12/03/20 04:45 Assessment and Plan - Patient Problems (1) CVA (cerebral vascular accident) Current Visit: Yes Status: Acute Qualifiers: Qualified Code(s): I63.9 - Cerebral infarction, unspecified Plan to address problem: No arrhythmias seen on telemetry thus far. An echocardiogram reports normal left ventricular systolic function, ejection fraction 55-60%. Bubble study is negative.
[2020-12-04] MEDS: ENOXAPARIN 40 MG/0.4 ML INJ SUB-Q SCH (10:45)
[2020-12-04] MEDS: ASPIRIN EC 81 MG TAB PO SCH (10:46)
[2020-12-04] MEDS: hydroCHLOROthiazide 25 MG TAB PO SCH (10:47)
[2020-12-04] MEDS ORDERED: cloNIDine 0.2 MG TAB PO PRN (11:00)
--- NOTE | 2020-12-04 11:38 | Progress Note ---
Assessment and Plan Assessment and plan: This is a 45-year-old -[place] male who presents to the emergency department with complaint of 2 days of confusion. The patient says that he was having difficulty answering questions that he normally would be able to answer such as a list of his medications. The patient's urine acute infection or hematuria who is currently on the phone during our initial examination, also says that the patient has been "delirious" in which he is having episodes where he is not making sense and wandering off. They called 911 last night and the patient was evaluated by EMS but did not go to a hospital for evaluation or treatment. Over this 2 days the patient also complains of a headache behind his eyes. He has had some transient blurry vision. He denies any numbness or paresthesias, facial droop, difficulty moving his extremities or walking. He has a past medical history of hypertension. He had an episode of pancreatitis back in March of last year. The patient is a tobacco smoker but denies any illicit drug use. He is an occasional or social drinker. ED work up shows-WBC 10.0, hemoglobin 16.3, platelets 269, sodium 134, potassium 4.2, creatinine 1.0, serum glucose 207. CT of the head was done it showed a subacute nonhemorrhagic infarction Teleneuro was consulted Patient seen in the ED at bedside. Patient appears more alert and oriented. He reported a history of high blood pressure, tobacco use, but denies alcohol and illicit drug use. He reported a history of mother with high blood pressure and multiple myeloma. I reviewed the lab and vital signs. I reviewed neuro consult recommendation. We will follow up with plan of care. Physical therapy, occupational therapy, and speech pathologist consulted MRI head without contrast and MRA head without contrast ordered Echocardiogram ordered. 12/04: Clinical findings discussed with the patient again. 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 Patient states is been 2 months since he used cocaine. Discussed with cardiology DAYDAY is planned for a.m.. And will arrange for Holter monitor outpatient. Acute CVA likely on the lower arterial circulation Substance use disorder positive for amphetamines and cocaine Acute encephalopathy metabolic likely secondary to substance abuse and CVA Hypertension with urgency Tobacco use disorder Plan Continue supportive care aspirin and statin Carotid ultrasound Await neurology input Echocardiogram has been ordered pending. PT OT and speech therapy Extensive counseling provided to the patient for substance abuse use he verbalized that he used cocaine 2 months ago at the same time was also hospitalized at another hospital and at that time was started on clonidine due to persistent hypertensive disorder. History Interval history: Patient seen and examined no acute distress at this time resting comfortably. Hospitalist Physical - Physical exam Narrative exam: VITAL SIGNS: Reviewed. GENERAL: The patient appears normally developed, Vital signs as documented. HEAD: No signs of head trauma. EYES: Pupils are equal. Extraocular motions intact. EARS: Hearing grossly intact. MOUTH: Oropharynx is normal. NECK: No adenopathy, no JVD. CHEST: Chest with clear breath sounds bilaterally. No wheezes, rales, or rhonchi. CARDIAC: Regular rate and rhythm. S1 and S2, without murmurs, gallops, or rubs. VASCULAR: No Edema. Peripheral pulses normal and equal in all extremities. ABDOMEN: Soft, non tender and non distended. No rebound or guarding, and no masses palpated. Bowel Sounds normal. MUSCULOSKELETAL: Good range of motion of all major joints. Extremities without clubbing, cyanosis or edema. NEUROLOGIC EXAM: Alert and oriented x 3 No focal sensory or strength deficits. Speech normal. Follows commands. PSYCHIATRIC: Mood normal. SKIN: detail exam as documented in skin assessment - Constitutional Vitals: Temp Pulse Resp BP Pulse Ox 98.2 F 75 18 109/69 98 12/04/20 07:25 12/04/20 07:25 12/04/20 07:25 12/04/20 07:25 12/04/20 07:25 General appearance: Present: no acute distress HEART Score - HEART Score Troponin: Troponin T < 0.010 ng/mL (0.00-0.029) 12/02/20 16:11 Results - Labs CBC & Chem 7: 12/03/20 04:45 12/03/20 04:45 Labs: Laboratory Last Values WBC 7.2 K/mm3 (4.5-11.0) 12/03/20 04:45 RBC 5.04 M/mm3 (3.65-5.03) H 12/03/20 04:45 Hgb 15.4 gm/dl (11.8-15.2) H 12/03/20 04:45 Hct 46.2 % (35.5-45.6) H 12/03/20 04:45 MCV 92 fl (84-94) 12/03/20 04:45 MCH 31 pg (28-32) 12/03/20 04:45 MCHC 33 % (32-34) 12/03/20 04:45 RDW 14.3 % (13.2-15.2) 12/03/20 04:45 Plt Count 250 K/mm3 (140-440) 12/03/20 04:45 Lymph % (Auto) 33.6 % (13.4-35.0) 12/03/20 04:45 [place] % (Auto) 10.9 % (0.0-7.3) H 12/03/20 04:45 Eos % (Auto) 3.0 % (0.0-4.3) 12/03/20 04:45 Baso % (Auto) 0.6 % (0.0-1.8) 12/03/20 04:45 Lymph # (Auto) 2.4 K/mm3 (1.2-5.4) 12/03/20 04:45 [place] # (Auto) 0.8 K/mm3 (0.0-0.8) 12/03/20 04:45 Eos # (Auto) 0.2 K/mm3 (0.0-0.4) 12/03/20 04:45 Baso # (Auto) 0.0 K/mm3 (0.0-0.1) 12/03/20 04:45 Seg Neutrophils % 51.9 % (40.0-70.0) 12/03/20 04:45 Seg Neutrophils # 3.7 K/mm3 (1.8-7.7) 12/03/20 04:45 PT 14.1 Sec. (12.2-14.9) 12/02/20 16:11 INR 1.11 (0.87-1.13) 12/02/20 16:11 APTT 35.5 Sec. (24.2-36.6) 12/02/20 16:11 Sodium 136 mmol/L (137-145) L 12/03/20 04:45 Potassium 3.8 mmol/L (3.6-5.0) 12/03/20 04:45 Chloride 101.8 mmol/L (98-107) 12/03/20 04:45 Carbon Dioxide 24 mmol/L (22-30) 12/03/20 04:45 Anion Gap 14 mmol/L 12/03/20 04:45 BUN 14 mg/dL (9-20) 12/03/20 04:45 Creatinine 1.0 mg/dL (0.8-1.3) 12/03/20 04:45 Estimated GFR > 60 ml/min 12/03/20 04:45 BUN/Creatinine Ratio 14 % 12/03/20 04:45 Glucose 95 mg/dL (75-100) 12/03/20 04:45 POC Glucose 96 mg/dL (70-105) 12/04/20 07:24 Hemoglobin A1c 6.0 % (4-6) 12/03/20 04:45 Lactic Acid 0.80 mmol/L (0.7-2.0) 12/02/20 16:11 Calcium 9.2 mg/dL (8.4-10.2) 12/03/20 04:45 Total Bilirubin 0.30 mg/dL (0.1-1.2) 12/03/20 04:45 Direct Bilirubin < 0.2 mg/dL (0-0.2) 12/03/20 04:45 Indirect Bilirubin 0.1 mg/dL 12/03/20 04:45 AST 19 units/L (5-40) 12/03/20 04:45 ALT 15 units/L (7-56) 12/03/20 04:45 Alkaline Phosphatase 82 units/L (35-129) 12/03/20 04:45 Total Creatine Kinase 207 units/L (55-170) H 12/02/20 16:11 Troponin T < 0.010 ng/mL (0.00-0.029) 12/02/20 16:11 Total Protein 7.7 g/dL (6.3-8.2) 12/03/20 04:45 Albumin 4.0 g/dL (3.9-5) 12/03/20 04:45 Albumin/Globulin Ratio 1.1 % 12/03/20 04:45 Triglycerides 90 mg/dL (2-149) 12/03/20 04:45 Cholesterol 156 mg/dL (50-199) 12/03/20 04:45 LDL Cholesterol Direct 105 mg/dL (50-130) 12/03/20 04:45 HDL Cholesterol 39 mg/dL (40-59) L 12/03/20 04:45 Cholesterol/HDL Ratio 4.00 % 12/03/20 04:45 Urine Color Yellow (Yellow) 12/03/20 12:04 Urine Turbidity Clear (Clear) 12/03/20 12:04 Urine pH 5.0 (5.0-7.0) 12/03/20 12:04 Ur Specific [place] 1.015 (1.003-1.030) 12/03/20 12:04 Urine Protein <15 mg/dl mg/dL (Negative) 12/03/20 12:04 Urine Glucose (UA) Neg mg/dL (Negative) 12/03/20 12:04 Urine Ketones Neg mg/dL (Negative) 12/03/20 12:04 Urine Blood Neg (Negative) 12/03/20 12:04 Urine Nitrite Neg (Negative) 12/03/20 12:04 Urine Bilirubin Neg (Negative) 12/03/20 12:04 Urine Urobilinogen < 2.0 mg/dL (<2.0) 12/03/20 12:04 Ur Leukocyte Esterase Neg (Negative) 12/03/20 12:04 Urine WBC (Auto) 2.0 /HPF (0.0-6.0) 12/03/20 12:04 Urine RBC (Auto) 1.0 /HPF (0.0-6.0) 12/03/20 12:04 Urine Mucus 3+ /HPF 12/03/20 12:04 Salicylates < 0.3 mg/dL (2.8-20.0) L 12/02/20 16:11 Urine Opiates Screen Negative 12/03/20 12:04 Urine Methadone Screen Negative 12/03/20 12:04 Acetaminophen 5.0 ug/mL (10.0-30.0) L 12/02/20 16:11 Ur Barbiturates Screen Negative 12/03/20 12:04 Ur Phencyclidine Scrn Negative 12/03/20 12:04 Ur Amphetamines Screen Presumptive positive 12/03/20 12:04 U Benzodiazepines Scrn Negative 12/03/20 12:04 Urine Cocaine Screen Presumptive positive 12/03/20 12:04 U Marijuana (THC) Screen Negative 12/03/20 12:04 Drugs of Abuse Note Disclamer 12/03/20 12:04 Plasma/Serum Alcohol < 0.01 % (0-0.07) 12/02/20 16:11 - Diagnostic Impressions Diagnostic Impressions: Echocardiogram 12/02/20 22:14 Transthoracic Echocardiogram Indication: CVA BP: 147/90 HR: 72 Conclusions *Moderate concentric left ventricular hypertrophy is observed. *Global left ventricular wall motion and contractility are within normal limits. *The estimated ejection fraction is 55-60%. *Abnormal left ventricular diastolic filling is observed, consistent with impaired relaxation. *There is no pericardial effusion. *Normal bubble study without evidence of intracardiac or intrapulmonary communication. Findings Left Ventricle: The left ventricular chamber size is normal. Moderate concentric left ventricular hypertrophy is observed. Global left ventricular wall motion and contractility are within normal limits. Global left ventricular systolic function is normal. The estimated ejection fraction is 55-60%. Abnormal left ventricular diastolic filling is observed, consistent with impaired relaxation. Left Atrium: The left atrial chamber size is normal. Right Ventricle: The right ventricular cavity size is normal. Right Atrium: The right atrial cavity size is normal. No atrial septal defected is demonstrated by agitated saline contrast. Aortic Valve: The aortic valve structure is normal. There is no evidence of aortic regurgitation. Mitral Valve: There is no evidence of mitral regurgitation. Tricuspid Valve: The tricuspid valve leaflets are normal. There is trace tricuspid regurgitation. The right ventricular systolic pressure is calculated at 21 mmHg. Pulmonic Valve: The pulmonic valve appears normal. There is trace pulmonic regurgitation. Pericardium: There is no pericardial effusion. Aorta: The aorta appears normal. Venous: The inferior vena cava appears normal. Contrast: Intravenous agitated saline contrast was used to assess intracardiac shunting. Measurements Chambers 2D Name Value Normal Range IVSd (2D) 1.49 cm (0.6 - 1.1) LVPWd (2D) 1.44 cm (0.6 - 1.1) LVIDd (2D) 4.29 cm (3.7 - 5.6) LVIDs (2D) 3.09 cm (2 - 3.8) LV FS (2D) 27.93 % - EF Teichholz (2D) 54.4 % - Ao root diameter (2D) 3.67 cm (2 - 3.7) Volumes/Mass Name Value Normal Range LA ESV SP 4CH (A/L) 28.12 ml - LA ESV SP 2CH (A/L) 27.48 ml - LA ESV BP (A/L) 28.15 ml - LA ESV BP (A/L) index 15.3 ml/m2 - LA ESV SP 4CH (MOD) 26.96 ml - LA ESV SP 2CH (MOD) 25.53 ml - LA ESV BP (MOD) 26.31 ml - LA ESV BP (MOD) index 14.3 ml/m2 - Diastolic/Systolic Function Name Value Normal Range MV E-wave Vmax 0.53 m/sec - MV deceleration time 354.89 msec - MV A-wave Vmax 0.79 m/sec - MV E:A ratio 0.67 ratio - Aortic Valve Name Value Normal Range AV Vmax 1.42 m/sec - AV VTI 20.92 cm - AV peak gradient 8.06 mmHg - AV mean gradient 4.57 mmHg - LVOT diameter 2.05 cm - LVOT Vmax 1.3 m/sec - LVOT VTI 20.78 cm - LVOT peak gradient 6.78 mmHg - LVOT mean gradient 3.61 mmHg - SV LVOT 68.8 ml - EVELIO (continuity Vmax) 3.04 cm2 - EVELIO (continuity VTI) 3.29 cm2 - Ascending Ao 2.95 cm - Tricuspid Valve Name Value Normal Range TR Vmax 2.13 m/sec - TR peak gradient 18 mmHg - RAP 3 mmHg - RVSP 21 mmHg - Pulmonic Valve/Qp:Qs Name Value Normal Range PV Vmax 0.8 m/sec - PV peak gradient 2.57 mmHg - ME end-diastolic Vmax 1.04 m/sec - PV acceleration time 133.21 msec - Asher/IV: Voiding Method Urinal Active Medications - Current Medications Current Medications: Generic Name Dose Route Start Last Admin Trade Name Freq PRN Reason Stop Dose Admin Acetaminophen 650 mg 12/02/20 21:36 Acetaminophen 325 Mg Tab PO Q4H PRN Pain MILD(1-3)/Fever >100.5/MAGAÑA Al Hydrox/Mg Hydrox/Simethicone 30 ml 12/02/20 21:36 Alum-Mag Hydroxide-Simethicone [id number]/5ml Oral Liqd 30 Ml PO Q4H PRN Indigestion Aspirin 81 mg 12/03/20 10:00 12/04/20 10:46 Aspirin Ec 81 Mg Tab PO 81 mg DAILY [facility] Administration Atorvastatin Calcium 40 mg 12/02/20 22:00 12/03/20 21:48 Atorvastatin 40 Mg Tab PO Not Given QHS [facility] Clonidine HCl 0.1 mg 12/04/20 11:00 Clonidine 0.2 Mg Tab PO DAILY PRN Hypertension Enoxaparin Sodium 40 mg 12/03/20 10:00 12/04/20 10:45 Enoxaparin 40 Mg/0.4 Ml Inj SUB-Q 40 mg DAILY [facility] Administration Protocol Hydralazine HCl 5 mg 12/03/20 07:25 Hydralazine 20 Mg/1 Ml Inj IV Q4HR PRN SBP >/=160; DBP >/=100 Hydrochlorothiazide 25 mg 12/03/20 10:00 12/04/20 10:47 Hydrochlorothiazide 25 Mg Tab PO 25 mg DAILY [facility] Administration Hydroxyzine Pamoate 25 mg 12/03/20 07:40 Hydroxyzine Pamoate 25 Mg Cap PO Q6HR PRN Itching Labetalol HCl 10 mg 12/02/20 21:36 Labetalol 20 Mg/4 Ml Inj IV Q5MIN PRN to maintain SBP < 180 Magnesium Hydroxide 30 ml 12/02/20 21:36 Magnesium Hydroxide (Mom) Oral Liqd Udc PO Q4H PRN Constipation Metoclopramide HCl 10 mg 12/02/20 21:36 Metoclopramide 10 Mg/2 Ml Inj IV Q6H PRN Nausea And Vomiting Ondansetron HCl 4 mg 12/02/20 21:36 Ondansetron 4 Mg/2 Ml Inj IV Q8H PRN Nausea And Vomiting Sodium Chloride 10 ml 12/02/20 21:36 Sodium Chloride 0.9% 10 Ml Flush Syringe IV PRN PRN LINE FLUSH Sodium Chloride 10 ml 12/02/20 22:00 12/04/20 10:48 Sodium Chloride 0.9% 10 Ml Flush Syringe IV 10 ml BID [facility] Administration Tramadol HCl 50 mg 12/02/20 22:03 Tramadol 50 Mg Tab PO ONCE PRN Moder Pain unrelieved by [place] Trazodone HCl 50 mg 12/02/20 22:03 12/03/20 21:48 Trazodone 50 Mg Tab PO 50 mg QHS PRN Administration Insomnia Valsartan 160 mg 12/04/20 12:00 Valsartan 160mg Tab PO BID JOHN
[2020-12-04] MEDS: VALSARTAN 160MG TAB PO SCH ×2 (12:24→22:40)
--- NOTE | 2020-12-04 16:18 | Vascular Lab Report ---
BILATERAL CAROTID DOPPLER ULTRASOUND INDICATION : cva TECHNIQUE: Grayscale and color Doppler imaging performed through the neck. COMPARISON: None FINDINGS: Right: There is no significant atherosclerotic disease. Peak systolic velocity in the CCA is 115 cm /s with end-diastolic velocity of 29 cm/s. Peak systolic velocity in the proximal ICA is 98 cm/s with end-diastolic velocity of 42 cm/s. ICA to CCA ratio is less than 2. There is antegrade flow in the ECA and the vertebral artery. Left: There is no significant atherosclerotic disease. Peak systolic velocity in the CCA is 99 cm/s w ith end-diastolic velocity of 33 cm/s. Peak systolic velocity in the proximal ICA is 106 cm/s with en d-diastolic velocity of 48 cm/s. ICA to CCA ratio is less than 2. There is antegrade flow in the ECA and the vertebral artery. IMPRESSION: No hemodynamically significant stenosis by NASCET criteria. Doppler velocities indicate l ess than 50% luminal narrowing bilaterally. Signer Name: Andres Lambert Jr, MD Signed: 12/04/2020 4:14 PM Workstation Name: [id number]
[2020-12-04] MEDS: traZODone 50 MG TAB PO PRN (22:47)
--- NOTE | 2020-12-05 10:50 | Progress Note ---
Assessment and Plan - Patient Problems (1) CVA (cerebral vascular accident) Current Visit: Yes Status: Acute Qualifiers: Qualified Code(s): I63.9 - Cerebral infarction, unspecified Plan to address problem: No arrhythmias seen on telemetry thus far. An echocardiogram reports normal left ventricular systolic function, ejection fraction 55-60%. Bubble study is negative. Awaits for plan DAYDAY today. Outpatient event monitor have been recommended by neurology. Subjective Date of service: 12/05/20 Principal diagnosis: CVA Interval history: Currently stable sinus rhythm on telemetry. No arrhythmias seen. For planned DAYDAY today. Objective Vital Signs Temp Pulse Resp BP Pulse Ox 12/05/20 03:52 96.8 F L 68 16 112/76 96 12/04/20 22:58 78 12/04/20 22:40 86 125/82 12/04/20 19:54 83 12/04/20 19:29 99.7 F H 77 16 132/85 98 12/04/20 16:15 98.1 F 82 18 145/85 97 12/04/20 12:24 70 124/75 12/04/20 12:15 98.4 F 70 18 124/75 97 - Physical Examination General: No Apparent Distress HEENT: Positive: PERRL Neck: Positive: trachea midline Cardiac: Positive: Reg Rate and Rhythm Lungs: Positive: Decreased Breath Sounds Neuro: Positive: Grossly Intact Extremities: Absent: edema
[2020-12-05] MEDS ORDERED: fentaNYL 100 MCG/2 ML INJ IV ONE (11:26)
[2020-12-05] MEDS ORDERED: MIDAZOLAM 5 MG/5 ML INJ MDV IV ONE (11:26)
[2020-12-05] MEDS ORDERED: SODIUM CHLORIDE 0.9% 500 ML 500 ML IV SCH (12:00)
[2020-12-05] MEDS ORDERED: BENZOCAINE 20% TOP SPRAY 0.5 ML UNIT DOSE MM NR (12:00)
[2020-12-05] MEDS ORDERED: hydrALAZINE 20 MG/1 ML INJ IV ONE (13:15)
--- NOTE | 2020-12-05 15:35 | Discharge Summary ---
Providers - Providers Date of Admission: 12/03/20 09:44 Attending physician: KAMLA ANDRADE MD 12/02/20 21:37 Occupational Therapy Evaluate and Treat [CONS] Routine Comment: Reason For Exam: Neuro deficits Physical Therapy Evaluation and Treat [CONS] Routine Comment: Reason For Exam: Neuro deficits 12/02/20 21:41 Speech Therapy Evaluation and Treat [CONS] Stat Reason For Exam: cva 12/03/20 07:41 Consult to Physician [CONS] Routine Comment: Consulting Provider: TITA BACON Physician Instructions: Reason For Exam: cva 12/04/20 08:47 Consult to Physician [CONS] Routine Comment: Consulting Provider: SANDRA WALLS Physician Instructions: Reason For Exam: DAYDAY Primary care physician: SAAD THORNTON Hospitalization Reason for admission: CVA Condition: Stable Hospital course: This is a 45-year-old -[place] male who presents to the emergency department with complaint of 2 days of confusion. The patient says that he was having difficulty answering questions that he normally would be able to answer such as a list of his medications. The patient's urine acute infection or hematuria who is currently on the phone during our initial examination, also says that the patient has been "delirious" in which he is having episodes where he is not making sense and wandering off. They called 911 last night and the patient was evaluated by EMS but did not go to a hospital for evaluation or treatment. Over this 2 days the patient also complains of a headache behind his eyes. He has had some transient blurry vision. He denies any numbness or paresthesias, facial droop, difficulty moving his extremities or walking. He has a past medical history of hypertension. He had an episode of pancreatitis back in March of last year. The patient is a tobacco smoker but denies any illicit drug use. He is an occasional or social drinker. ED work up shows-WBC 10.0, hemoglobin 16.3, platelets 269, sodium 134, potassium 4.2, creatinine 1.0, serum glucose 207. CT of the head was done it showed a subacute nonhemorrhagic infarction Teleneuro was consulted Patient seen in the ED at bedside. Patient appears more alert and oriented. He reported a history of high blood pressure, tobacco use, but denies alcohol and illicit drug use. He reported a history of mother with high blood pressure and multiple myeloma. I reviewed the lab and vital signs. I reviewed neuro consult recommendation. We will follow up with plan of care. Physical therapy, occupational therapy, and speech pathologist consulted MRI head without contrast and MRA head without contrast ordered Echocardiogram ordered. 12/04: Clinical findings discussed with the patient again. 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 Patient states is been 2 months since he used cocaine. Discussed with cardiology DAYDAY is planned for a.m.. And will arrange for Holter monitor outpatient. 12/05: Patient underwent a DAYDAY that was unremarkable. Blood pressure better cont rolled. I renewed his blood pressure medication and advised him on discharge plan. Acute CVA likely on the lower arterial circulation Substance use disorder positive for amphetamines and cocaine Acute encephalopathy metabolic likely secondary to substance abuse and CVA Hypertension with urgency Tobacco use disorder Plan Continue supportive care aspirin and statin Carotid ultrasound Await neurology input Echocardiogram has been ordered pending. PT OT and speech therapy Extensive counseling provided to the patient for substance abuse use he verbalized that he used cocaine 2 months ago at the same time was also hospitalized at another hospital and at that time was started on clonidine due to persistent hypertensive disorder. Disposition: DC-01 TO HOME OR SELFCARE Time spent for discharge: 35 mins Core Measure Documentation - Palliative Care Palliative Care/ Comfort Measures: Not Applicable - Core Measures Any of the following diagnoses?: stroke - Stroke Discharge Requirements Statin for LDL = or >70 mg/dl on DC: Yes Anticoag for atrial fib/atrial flutter: Not Applicable Antithrombotic for ischemic stroke: Yes Exam - Physical Exam Narrative exam: VITAL SIGNS: Reviewed. GENERAL: The patient appears normally developed, Vital signs as documented. HEAD: No signs of head trauma. EYES: Pupils are equal. Extraocular motions intact. EARS: Hearing grossly intact. MOUTH: Oropharynx is normal. NECK: No adenopathy, no JVD. CHEST: Chest with clear breath sounds bilaterally. No wheezes, rales, or rhonchi. CARDIAC: Regular rate and rhythm. S1 and S2, without murmurs, gallops, or rubs. VASCULAR: No Edema. Peripheral pulses normal and equal in all extremities. ABDOMEN: Soft, non tender and non distended. No rebound or guarding, and no masses palpated. Bowel Sounds normal. MUSCULOSKELETAL: Good range of motion of all major joints. Extremities without clubbing, cyanosis or edema. NEUROLOGIC EXAM: Alert and oriented x 3 No focal sensory or strength deficits. Speech normal. Follows commands. PSYCHIATRIC: Mood normal. SKIN: detail exam as documented in skin assessment - Constitutional Vitals: Temp Pulse Resp BP Pulse Ox 97.7 F 97 H 15 135/91 96 12/05/20 11:23 12/05/20 13:33 12/05/20 13:33 12/05/20 13:33 12/05/20 13:33 Plan Activity: advance as tolerated, fall precautions Diet: low fat Special Instructions: record daily weights, record daily BP diary, smoking cessation Additional Instructions: Must avoid substance abuse including cocaine. Follow up with: SAAD THORNTON MD [Primary Care Provider] - 7 Days DIANE GARCIA MD [Staff Physician] - 7 Days Prescriptions: cloNIDine [Catapres] 0.1 mg PO QHS #30 tablet AtorvaSTATin [Lipitor] 40 mg PO QHS #30 tablet Aspirin EC [Halfprin EC] 81 mg PO DAILY #30 tablet Lisinopril/Hydrochlorothiazide [Zestoretic 20-12.5 mg] 1 each PO DAILY #30 t ablet
[2020-12-05] MEDS: ASPIRIN EC 81 MG TAB PO SCH (17:00)
[2020-12-05] MEDS: ENOXAPARIN 40 MG/0.4 ML INJ SUB-Q SCH (17:03)
[2020-12-05] MEDS: VALSARTAN 160MG TAB PO SCH (17:03)
[2020-12-05 17:07] VITALS: BP 140/104
== END 2020-12-05 18:00 | disposition home or self-care (01) | DRG 64 ==
LOC: ED 15:17 → 4A 21:24 → OBSVTOIN 12-03 09:44
PROVIDERS: ADMIT Internal Medicine Geriatric Medicine; ATTEND Internal Medicine
PROC: B246ZZ4 Ultrasonography of Right and Left Heart, Transesophageal (ICD-10-PCS; principal; 2020-12-04)
DX: I63.9 Cerebral infarction, unspecified (principal); G93.41 Metabolic encephalopathy; F17.200 Nicotine dependence, unspecified, uncomplicated; I10 Essential (primary) hypertension; I16.0 Hypertensive urgency; F15.90 Other stimulant use, unspecified, uncomplicated; F14.90 Cocaine use, unspecified, uncomplicated; F19.90 Other psychoactive substance use, unspecified, uncomplicated; R29.702 NIHSS score 2; Z82.49 Family history of ischemic heart disease and other diseases of the circulatory system; Z83.3 Family history of diabetes mellitus; Z79.899 Other long term (current) drug therapy
CPT/HCPCS: 36415; 70450; 70544; 70551; 80048; 80053; 80061; 80076; 80307; 80320; 81001; 82140; 82550; 82962; 83036; 84484; 85025; 85610; 85730; 93005; 93306; 93312; 93320; 93325; 93880; 96372; 96374; G0378; A9270-GY; G0480; J0360; J1650; J2250; J3010